=== PATIENT | female | born 1990 | race Two or more races ===

== ENCOUNTER 2017-12-26 21:41 | Emergency (ER) | payer SELFPAY ==
[2017-12-26] MEDS ORDERED: RINGERS SOLUTION,LACTATED 2,000 ML IV ONE (21:56)
[2017-12-26] MEDS ORDERED: KETAMINE HCL INJ 500 MG/10 ML VIAL IM ONE (21:57)
--- NOTE | 2017-12-26 21:57 | ER Document Report ---
ED General - General Stated Complaint: PSYCH PROBLEM Time Seen by Provider: 12/26/17 21:53 Cannot obtain history due to: Unstable vital signs, Altered mental status Notes: Patient is a 27-year-old female with unknown past medical history who presents by EMS extremely agitated, combative. Patient was apparently found outside her home, trying to walk into traffic, quite agitated and difficult to redirect. The patient received midazolam in route to the hospital without resolution of her agitation. No known substance abuse history per EMS. History is otherwise unobtainable secondary to patient's altered mental status at time of presentation. TRAVEL OUTSIDE OF THE [place] IN LAST 30 DAYS: No - Related Data Allergies/Adverse Reactions: No Known Allergies Allergy (Verified 01/05/15 10:56) Past Medical History - General Information source: Emergency Med Personnel Cannot obtain history due to: Altered mental status - Social History Smoking Status: Unknown if Ever Smoked Lives with: Family Family History: Reviewed & Not Pertinent Pulmonary Medical History: Reports: Hx Asthma - as a child Past Surgical History: Reports: Hx Myringotomy - Immunizations Immunizations up to date: Yes Hx Diphtheria, Pertussis, Tetanus Vaccination: Yes Review of Systems - Review of Systems -: Yes ROS unobtainable due to patient's medical condition Physical Exam - Vital signs Vitals: Resp Pulse Ox 31 H 98 12/26/17 21:43 12/26/17 21:43 Interpretation: Hypertensive, Tachycardic, Tachypneic Notes: PHYSICAL EXAMINATION: Examination taken after the patient was sedated for her safety as well as the safety of examiner GENERAL: Diaphoretic, somewhat ill in appearance but in no acute distress HEAD: Atraumatic, normocephalic. EYES: Pupils equal round and reactive to light, sclera anicteric, conjunctiva are normal. ENT: nares patent, oropharynx clear without exudates. Dry mucous membranes. NECK: Normal range of motion, supple without lymphadenopathy LUNGS: Breath sounds clear to auscultation bilaterally and equal. No wheezes rales or rhonchi. HEART: Regular tachycardia without murmurs ABDOMEN: Soft, nontender, normoactive bowel sounds. No guarding, no rebound. No masses appreciated. EXTREMITIES: no pitting or edema. No cyanosis. NEUROLOGICAL: No focal neurological deficits. Moves all extremities spontaneously. PSYCH: On presentation patient was screaming "help me, I need help" over and over again. She was thrashing around the gurney, agitated, combative, unable to be redirected. SKIN: Warm, diaphoretic, flushed Course - Re-evaluation Re-evalutation: 12/26/17 21:54 Documentation delayed has initial time period was spent managing and directing initial care and discussing the case with EMS. In summary the patient arrives extremely agitated, tachycardic to 200, requiring multiple security guards and EMS staff to get her into the emergency department. She has already received 4 mg of intramuscular midazolam prior to arrival with minimal effect. The patient has a presentation consistent with acute agitated delirium is secondary to a primary psychosis versus more probably secondary to a sympathomimetic drug. Given the undifferentiated nature of this patient's presentation and the minimal effective a appropriate dose of benzodiazepine I have moved to giving the patient a full dose of intramuscular ketamine. The patient requires immediate sedation as she has significant psychomotor agitation and is an immediate risk to herself and staff. There is also concern that the patient will induce rhabdomyolysis and the associated sequelae if she does not calm down. After the patient is calm, we will establish IV access, begin IV fluids, obtain labs and continue to reassess at regular intervals. 12/26/17 22:31 Patient is now much more calm, in a disassociated state. Her heart rate has down trended from 200+ at time of presentation to 151 on EKG. Respirations even , unlabored. We are working to obtain labs. IV access has been established and fluids are infusing. Will continue to reassess at regular intervals. 12/27/17 00:12 Patient remains calm, is starting to wake up but no longer aggressive. Labs show unspecific leukocytosis no significant CK elevation. Tachycardia has markedly improved currently down to 130 bpm. 12/27/17 01:29 Patient is awake, alert, still seems somewhat confused but is otherwise oriented. She states the only substance she used and it was marijuana I will anticipate that given her presentation this was actually spice or synthetic cannabinoids. The patient's heart rate remains mildly elevated. She has tolerated oral intake. Will allow the patient to become more clinically sober prior to discharge. 12/27/17 03:05 Patient continues to clinically improve. She no longer appears to be under any significant substance influence. Tachycardia is likewise substantially improving current heart rate into the 110s. She has tolerated oral intake without difficulty. She is ambulated without assistance. At this time will discharge with return precautions and follow-up recommendations. Verbal discharge instructions given a the bedside and opportunity for questions given. Medication warnings reviewed. Patient is in agreement with this plan and has verbalized understanding of return precautions and the need for primary care follow-up in the next 24-72 hours. - Vital Signs Vital signs: Temp Pulse Resp BP Pulse Ox 27 H 154/86 H 99 12/26/17 22:01 12/26/17 22:01 12/26/17 22:01 - Laboratory Result Diagrams: 12/26/17 22:10 12/26/17 22:10 Laboratory results interpreted by me: 12/26/17 12/26/17 12/26/17 22:10 22:10 22:30 WBC 17.3 H MCH 26.5 L Seg Neutrophils % 80.4 H Absolute Neutrophils 13.9 H Sodium 146.9 H Chloride 112 H Carbon Dioxide 15 L Anion Gap 20 H Glucose 119 H Alkaline Phosphatase 133 H Creatine Kinase 162 H Urine Protein 100 H Urine Ketones 20 H Urine Urobilinogen 2.0 H Ur Leukocyte Esterase TRACE H Acetaminophen < 10 L - EKG Interpretation by Me Additional EKG results interpreted by me: 12/27/17 03:05 Sinus tachycardia, rate 152. No ST elevations or depressions. QTC is 446. Critical Care Note - Critical Care Note Total time excluding time spent on procedures (mins): 38 Comments: Critical care time spent obtaining history from patient or surrogate, discussions with consultants, development of treatment plan with patient or surrogate, evaluation of patient's response to treatment, examination of patient , ordering and performing treatments and interventions, ordering and review of laboratory studies, re-evaluation of patient's condition, ordering and review of radiographic studies and review of old charts Discharge - Discharge Clinical Impression: Agitation, Drug intoxication with delirium, Dehydration Condition: Stable Disposition: HOME, SELF-CARE Additional Instructions: You were seen today after becoming extremely agitated and confused after using what was likely spice, a synthetic form of marijuana. Your labs show a high white blood cell count which is likely due to your initial agitation but are otherwise normal. Please avoid using illicit drugs. Return for any additional symptoms you may have including headache, neck pain, weakness, numbness, fever of greater than 100.4F, urinating less than 3 times in a day, extremely dark urine, or any other symptoms that are worrisome to you.
[2017-12-26 22:30] LABS: ABSOLUTE LYMPHOCYTES (AUTO) 2.4 10^3/uL (0.5-4.7); ABSOLUTE NEUT (AUTO) 13.9 10^3/uL (1.7-8.2); BASOPHILS % (AUTO) 0.3 % (0-2); HEMATOCRIT 38.8 % (36.0-47.0); HEMOGLOBIN 12.9 g/dL (12.0-15.5); LYMPHOCYTES % (AUTO) 13.7 % (13-45); MEAN CORPUSCULAR HEMOGLOBIN 26.5 pg (27.0-33.4); MEAN CORPUSCULAR HGB CONC 33.2 g/dL (32.0-36.0); MEAN CORPUSCULAR VOLUME 80 fl (80-97); MONOCYTES % (AUTO) 5.6 % (3-13); PLATELET COUNT 311 10^3/uL (150-450); RED BLOOD COUNT 4.85 10^6/uL (3.72-5.28); RED CELL DISTRIBUTION WIDTH 13.7 % (11.5-14.0); SEGMENTED NEUTROPHILS % (AUTO) 80.4 % (42-78); TOTAL CELLS COUNTED % (AUTO) 100 %; WHITE BLOOD COUNT 17.3 10^3/uL (4.0-10.5)
[2017-12-26 22:49] LABS: APPEARANCE,URINE SLIGHTLY-CLOUDY; BILIRUBIN,URINE NEGATIVE (NEGATIVE); GLUCOSE, URINE NEGATIVE (NEGATIVE); KETONES,URINE 20 mg/dL (NEGATIVE); LEUKOCYTE ESTERASE,URINE TRACE (NEGATIVE); NITRITE,URINE NEGATIVE (NEGATIVE); PROTEIN,URINE 100 mg/dL (NEGATIVE); URINE SPECIFIC GRAVITY 1.033
[2017-12-26 22:50] LABS: COLOR,URINE YELLOW
[2017-12-26 22:50] LABS: ALANINE AMINOTRANSFERASE 36 U/L (9-52); ALBUMIN 4.3 g/dL (3.5-5.0); ALKALINE PHOSPHATASE 133 U/L (38-126); ASPARTATE AMINO TRANSFERASE 29 U/L (14-36); BILIRUBIN,DIRECT 0.3 mg/dL (0.0-0.4); BILIRUBIN,TOTAL 0.5 mg/dL (0.2-1.3); BLOOD UREA NITROGEN 13 mg/dL (7-20); CARBON DIOXIDE 15 mmol/L (22-30); CHLORIDE 112 mmol/L (98-107); CREATINE KINASE 162 U/L (30-135); GLUCOSE 119 mg/dL (75-110); POTASSIUM 3.9 mmol/L (3.6-5.0); SODIUM 146.9 mmol/L (137-145)
[2017-12-26 22:51] LABS: ACETAMINOPHEN < 10 ug/mL (10-30); ALCOHOL < 10 mg/dL (NONE DETECTED)
[2017-12-26 22:57] LABS: ANION GAP 20 (5-19)
[2017-12-26 23:02] LABS: URINE AMPHETAMINES SCREEN NEGATIVE; URINE BARBITURATES SCREEN NEGATIVE; URINE BENZODIAZEPINES SCREEN UNCONFIRMED POSITIVE; URINE COCAINE SCREEN NEGATIVE; URINE MARIJUANA (THC) SCREEN UNCONFIRMED POSITIVE; URINE METHADONE SCREEN NEGATIVE; URINE PHENCYCLIDINE SCREEN NEGATIVE
[2017-12-27] MEDS ORDERED: MIDAZOLAM 2 MG/2 ML INJ IV ONE (00:14)
[2017-12-27] MEDS ORDERED: RINGERS SOLUTION,LACTATED 1,000 ML IV ONE ×2 (00:15→02:40)
[2017-12-27] MEDS ORDERED: ONDANSETRON HCL INJ/PF 4 MG/2 ML SDV IV ONE (02:25)
--- NOTE | 2017-12-27 07:47 | EKG REPORT ---
SEVERITY:- ABNORMAL ECG - SINUS TACHYCARDIA LATERAL Q WAVES, PROBABLY NORMAL VARIATION : Confirmed by: Wilian Vargas MD 27-Dec-2017 07:46:48
[2017-12-27] MEDS ORDERED: ONDANSETRON 4 MG TAB.RAPDIS PO PRN (12:35)
[2017-12-27] MEDS: CHLORPROMAZINE HCL 50 MG TABLET PO SCH ×2 (12:35→18:43)
[2017-12-27] MEDS: BENZTROPINE MESYLATE 1 MG TABLET PO SCH ×2 (12:35→18:43)
--- NOTE | 2017-12-27 14:25 | PSYCHOLOGICAL NOTE ---
Psych Note - Psych Note Psych Note: Reason for consult: Psychosis Patient's cousin, Magnolia and uncle, Lauro, are at bedside per patient's request Patient evaluated earlier this morning. Prior to my evaluation apparently patient family was at bedside patient became very paranoid and family stated this was abnormal for her and a psych consultation was obtained. Patient confirms she smoked marijuana but denies any other substance use; "smoked a blunt was a regular blunt... Yes why else would I feel like this." Patient was able to verbalize that she has a diagnosis of PTSD and appeared to be attempting to disclose additional diagnosis but have was unable to verbalize them. Patient was had to be redirected to conversation on multiple occasions was able to disclose that she goes to [facility] gets her medications from [facility]. Patient is alert and orientated to person and place. Mood is paranoid and anxious with congruent affect. Patient denies suicidal homicidal ideation. Patient appears to be suffering from the continuing effects of probable spice use. Patient is clearly paranoid and anxious becomes very nervous if family leave the room. Thought processes disorganized. Eye contact was poor. Conversational speech was disjointed patient was unable to complete thoughts. Attention and concentration was poor; patient needed to be redirected to conversation on multiple occasions. Insight, judgment, impulse control is poor. Medication recommendations per [facility]'s contracted psychiatrist Dr. 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 Patient admits to using marijuana. Patient's presentation is not congruent with THC however her presentation is congruent with the use of a synthetic. Medication recommendations have been provided. Patient will be reevaluated. Dr. Vidales was consulted and the care and management this patient ; attending physician is agreement with recommendations and disposition.
[2017-12-28] MEDS: CHLORPROMAZINE HCL 50 MG TABLET PO SCH (06:48)
[2017-12-28] MEDS: BENZTROPINE MESYLATE 1 MG TABLET PO SCH (10:02)
--- NOTE | 2017-12-28 10:53 | ER Document Report ---
Doctor's Note Notes: 12/28/17 10:51 Rounds: Chart reviewed and patient interviewed. Patient says she feels better than yesterday. Wishes to go home. Patient was evaluated for bizarre behavior and agitation. Patient says her symptoms did not begin until after she "smoked something" yesterday afternoon. Her behavior was not normal, according to her family. Patient has no history of mental illness. Patient's labs had a white count of 17,300, CPK slightly elevated at 162, urinalysis looks concentrated with a slightly elevated specific gravity and some ketones of a low level, but no signs or complaints of a UTI or any infection anywhere. Drug screen was positive for marijuana and benzos. Labs otherwise are essentially normal. Patient appears to be medically stable for discharge or transfer. Javed Pinto MD
[2017-12-28 13:27] VITALS: BP 128/74
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
== END 2017-12-28 13:26 | disposition home or self-care (01) ==
LOC: ER 21:41
DX: F19.921 Other psychoactive substance use, unspecified with intoxication with delirium (principal); R45.1 Restlessness and agitation; E86.0 Dehydration; J45.909 Unspecified asthma, uncomplicated
CPT/HCPCS: 93005; 99291; 96372; 96361; 96374; 96375; 36415; 80307 ×4; 82550; 84703; 85025; 80053; 81001; 93010; J2250; J3490 ×3; S0119; J2405; J7120 ×2